=== PATIENT | female | born 1995 | race Caucasian/White ===

== ENCOUNTER 2020-11-24 01:12 | Emergency (ER) | payer OTHER ==
[~2020-11-24] VITALS: Ht 175.3 cm; Wt 95.3 kg
[2020-11-24] MEDS ORDERED: VITAFOL-OB+DHA1 EACH PO (01:22)
[2020-11-24] MEDS ORDERED: CHILDREN'S ASPI81 M1 PO (01:22)
[2020-11-24 01:41] LABS: ABSOLUTE LYMPHOCYTES 2.3 thou/uL (0.8-5.3); LYMPHOCYTES 21.8 %; MPV 8.3 fl. (7.2-11.1)
[2020-11-24 01:43] LABS: ABSOLUTE EOSINOPHILS 0.1 thou/uL (0.0-0.7); ABSOLUTE MONOCYTES 0.9 thou/uL (0.0-1.2); ABSOLUTE NEUTROPHILS 7.1 thou/uL (1.6-8.1); BASOPHILS 0.4 %; EOSINOPHILS 1.2 %; HEMATOCRIT 36.3 % (37.0-47.0); HEMOGLOBIN 12.3 gm/dL (12.0-15.0); MCH 30.7 pg (26.0-34.0); MCHC 33.9 g/dL (28.0-37.0); MCV 90.5 fL (80.0-100.0); MONOCYTES 8.9 %; NUCLEATED RBCS 0 /100WBC; PLATELET COUNT* 240 thou/uL (150-400); POLYS 67.7 %; RBC 4.01 mil/uL (4.20-5.00); RDW-CV 13.2 % (10.5-14.5); WBC 10.5 thou/uL (4.0-11.0)
[2020-11-24 01:44] LABS: CALCIUM 9.6 mg/dL (8.5-10.1); CREATININE 0.6 mg/dL (0.6-1.3)
[2020-11-24 01:49] LABS: ALBUMIN 2.9 g/dL (3.4-5.0); TOTAL BILIRUBIN 0.3 mg/dL (<0.1-1.0)
[2020-11-24 01:50] LABS: URINE BILIRUBIN NEGATIVE (Negative); URINE BLOOD NEGATIVE (Negative); URINE CLARITY CLEAR; URINE COLOR YELLOW; URINE GLUCOSE-RANDOM NEGATIVE (Negative); URINE KETONES NEGATIVE (Negative); URINE LEUKOCYTES NEGATIVE (Negative); URINE NITRITE NEGATIVE (Negative); URINE PROTEIN NEGATIVE (Negative); URINE UROBILINOGEN 0.2 E.U./dl (0.2-1.0)
[2020-11-24 03:25] VITALS: BP 118/78
--- NOTE | 2020-11-24 09:36 | EKG ---
[place] [address] ELECTROCARDIOGRAM REPORT Name: KATHERINE KHALIL Room: [facility]#: [id number] Admission: 11/24/20 Attend Phys: Discharge: 11/24/20 Date of : [birth year] Date of Service: 11/24/20 0116 Report #: [id number] THIS REPORT FOR: //name// [facility] ED Test Date: 2020-11-24 Test Time: 01:16:21 Pat Name: KAHTERINE KHALIL Department: Room: Gender: Senior Technical Specialist: : [id number] Requested By: Alyssa Xiao Order Number: [id number] MD: Ray Kebede Measurements Intervals Sylva Rate: 105 P: 96 KS: 109 QRS: 38 QRSD: 113 T: 212 QT: 325 QTc: 430 Interpretive Statements Sinus tachycardia with short KS interval Intraventricular conduction delay Type B Yjqav-Asafdxafp-Zzznr conduction No previous ECG available for comparison Electronically Signed On 11-24-2020 9:36:11 INSURANCE CLAIMS EXAMINER by Ray Kebede [email or web address] <ELECTRONICALLY SIGNED> By: Ray Kebede MD, [facility] 11/24/20 0936 0116 0116 Ray Kebede MD, [facility] /EPI
== END 2020-11-24 03:27 | disposition short-term general hospital (02) ==
LOC: M.ERS 01:12
PROVIDERS: Emergency Medicine
DX: I49.9 Cardiac arrhythmia, unspecified (principal); I45.6 Pre-excitation syndrome; Z20.822 Contact with and (suspected) exposure to COVID-19